=== PATIENT | female | born 2000 | race African-American/Black ===

== ENCOUNTER 2022-03-16 16:20 | Emergency (ER) | payer SELFPAY ==
[2022-03-16 16:23] VITALS: BP 134/74; PULSE 71; RESP 18; TEMP 37.1; O2SAT 99
--- NOTE | 2022-03-16 17:30 | DI.RAD_ITS ---
Exam(s) XR HIP RT COMPLETE AP PELVIS EXAM: XR HIP RT COMPLETE AP PELVIS CLINICAL HISTORY: pain, injury. TECHNIQUE: 2D digital imaging was performed. COMPARISON: No exams were available for comparison FINDINGS: Two views No evidence of pelvic nor hip fracture. No degenerative changes. No hip dysplasia. Bone density no rmal. No osseous lesions. SI joints unremarkable IMPRESSION: No significant findings. No fracture. DATA REPOSITORY: RADIATION DOSE DELIVERED:
--- NOTE | 2022-03-16 17:43 | ED.GENADUL_ITS ---
Discharge Plan Disposition Patient Disposition: HOME Condition: Stable Discharge Details Clinical Impression: Hip pain, right Primary Care Provider: Unknown,Unknown ED Provider: Fredy Gonzalez Home Meds and New Rx's Prescriptions: Continued lamotrigine 50 mg Tablet Extended Release 24hr 50 mg PO 1XD Discharge Instructions Instructions: Hip Pain (ED) Additional Instructions: X-ray is unremarkable. Gentle stretching as tolerated. [id number] Tylenol and/or Motrin as directed for discomfort. Cool and/or warm compresses every 2 hours for 20 minutes. Please watch for new or worsening symptoms and return to the ER for any concerns. I have placed you on the care management list to help expedite outpatient primary care follow-up. Once you see your primary care provider if symptoms are persisting in your hip and potential referral to orthopedics and/or physical therapy may be necessary. Stand Alone Forms: Work Release Medical Decision Making 22-year-old female reports that over the weekend she was dancing and did the splits, has had a right hip pain ever since concerned that she may have dislocated her hip. Clinically she appears well, nontoxic. Appears more soft tissue related than a bony abnormality. She has been full weightbearing and there is no signs of obvious dislocation or deformity. Patient remains concerned. Will obtain x-ray POC Right hip and pelvis x-ray unremarkable. Discussed findings with patient. Patient declines crutches. She requests a work note to return to work. I will also place her on the care management list to help expedite primary care follow- up as she does not have a primary care provider Standard discharge and return precautions were provided. Patient understands, is agreeable to this plan, and has no additional questions or concerns upon discharge. This documentation was generated using [employer] system, please disregard any oddities of phrase or misspellings. Imaging Data Radiologic Study: Attestation: I personally reviewed and interpreted this imaging study as follows: Imaging: X-Ray Radiologist's impression: PROCEDURE INFORMATION: Exam: XR Right Hip Exam date and time: 03/16/2022 6:22 PM Age: 22 years old Clinical indication: Injury or trauma; Fall; Blunt trauma (contusions or hematomas); Injury date: 03/16/22; Injury details: Right hip in jury and pain TECHNIQUE: Imaging protocol: Radiologic exam of the Right hip. Views: 2 or 3 views hip with pelvis when performed. COMPARISON: No relevant prior studies available. FINDINGS: Other findings: There is umbilical jewelry. Bones/joints: Unremarkable. No acute fracture. Soft tissues: Unremarkable. IMPRESSION: No evidence of a fracture or a dislocation. HPI General Mode of arrival: ambulatory . Date/Time Provider Initiated Documentation: 03/16/22 16:28 . Limitations to Documentation: no limitations . Information obtained by: patient . History of Present Illness 22 year old F presents to the emergency department with the chief complaint of R hip pain, described as moderate, with intensity rated at 6. Quality is described as aching, and is localized to the right and lower extremity. Patient reports no radiation. Patient started experiencing this day(s) (5) and it has been constant. Immobilization improves symptom(s), Movement worsens symptoms . Patient notes no other symptoms.. Patient did receive the following treatments prior to arrival, none Related Data Home Medications Medication Instructions Recorded Confirmed lamotrigine 50 mg tablet,extended 50 mg PO 1XD 03/16/22 03/16/22 release 24 hr Allergies Allergy/AdvReac Type Severity Reaction Status Date / Time codeine Allergy Mild Other (See Unverified 03/16/22 16:26 Comment) General Stated Complaint: Orthopedic FELIX: 4 Review of Systems Constitutional Constitutional: Denies fever(s) and Denies weakness Musculoskeletal Musculoskeletal: Reports arthralgias, Denies numbness, Reports stiffness and Denies tingling Integumentary/Breasts Skin/Breast: Denies rash Neurologic Neurologic: Denies numbness, Denies tingling and Denies weakness PFSH All Active Problems (Updated 03/16/22 @ 19:02 by HONEY Mdaden) Hip pain, right (Acute) Social History Smoking/Tobacco Use Status: Never Smoking risk assessment performed?: Yes Alcohol Intake: current Alcohol Intake frequency: 0-2 drinks per day Alcohol type: wine and hard liquor Drug use: Never Substance use type: does not use Do you feel safe at home: Yes Exam Const General: cooperative, healthy appearing, comfortable and no acute distress Orientation: alert and awake [facility] Head: normal to inspection, normocephalic and atraumatic Eyes General: appearance normal, both eyes and all related structures Conjunctivae: conjunctivae normal Neck Neck: normal visual inspection, full ROM, trachea midline and supple Resp Effort & Inspection: normal respiratory effort and able to speak in complete sentences Cardio Rate: regular rate Rhythm: regular rhythm Back/Spine/Pelvis Back: No back tenderness Skin General skin exam: no rashes or lesions noted Neuro General: patient alert, patient awake, moves all extremities and no focal motor deficits Cognition: normal cognition Speech: speech normal Gait: normal gait Motor: muscle tone normal throughout Sensory Exam: no sensory deficits noted Extrem General: normal to inspection, full ROM and capillary refill normal Other: Right hip normal inspection. Full range of motion. Without swelling, erythema, ecchymosis. There is diffuse lateral and posterior discomfort. 5 of 5 strength. Normal dorsalis pedal pulse and capillary refill. Denies there is no shortening or rotation. Patient is able to bear weight and ambulate without difficulty. Psych Appearance: grossly normal Mental Status: mental status grossly normal Course Vital Signs Vital signs: Vital Signs Temperature 37.1 C 03/16/22 16:23 Pulse 71 03/16/22 16:23 Respiratory Rate 18 03/16/22 16:23 Blood Pressure 134/74 03/16/22 16:23 Pulse Oximetry 99 03/16/22 16:23 Temperature 37.1 C 03/16/22 16:23 Pulse 71 03/16/22 16:23 Respiratory Rate 18 03/16/22 16:23 Respiratory Effort Non-Labored 03/16/22 16:28 Blood Pressure 134/74 03/16/22 16:23 Blood Pressure Position Sitting 03/16/22 16:23 Pulse Oximetry 99 03/16/22 16:23 Oxygen Delivery Method Room Air 03/16/22 16:23 Oxygen Flow Rate 0 03/16/22 16:23 Pain Level 6 03/16/22 17:30 Lab/Test Results Lab/Test Results: POC- Test(urine) Negative PAWSS Have you Been Recently Intoxicated or Drunk Within the Last 30 days?: No Have you Ever Experienced Previous Episodes of Alcohol Withdrawal?: No Have you ever Experienced Withdrawal Seizures?: No Have you ever Experienced Delirium Tremens(DT)s?: No Have you ever undergone Alcohol Rehabilitation Treatment (i.e, inpt ot outpatie nt treatment programs)?: No Have you ever Experienced Blackouts?: No Have you ever Combined Alcohol with other Downers within the last 90 days?: No Have you ever Combined Alcohol with any other Substance of Abuse during the last 90 days?: No Positive Blood Alcohol level on Presentation? [PCS.BAL]: No Evidence of Increased Autonomic Activity (i.e. HR>120, tremor, sweating, agitation, nausea)?: No Result: 0
--- NOTE | 2022-03-16 18:01 | PDOC.ERCMPRO ---
- If Service Date Differs Date of service: 03/16/22 Time of Service: 18:01 Care Management Progress Note Pt reports no significant substance use but endorses moderate anxiety symptoms (SEDA 9). She has recently moved to the area and does not currently have a Primary Care. Pt was encouraged to seek out a PCP and was provided with contact information for local mental health resources, including the 24 hour crisis line. Pt states she has accessed [facility] for a list of primary care and other services as well.
--- NOTE | 2022-03-16 18:42 | DI.VRAD_ITS ---
PROCEDURE INFORMATION: Exam: XR Right Hip Exam date and time: 03/16/2022 6:22 PM Age: 22 years old Clinical indication: Injury or trauma; Fall; Blunt trauma (contusions or hematomas); Injury date: 03/16/22; Injury details: Right hip injury and pain TECHNIQUE: Imaging protocol: Radiologic exam of the Right hip. Views: 2 or 3 views hip with pelvis when performed. COMPARISON: No relevant prior studies available. FINDINGS: Other findings: There is umbilical jewelry. Bones/joints: Unremarkable. No acute fracture. Soft tissues: Unremarkable. IMPRESSION: No evidence of a fracture or a dislocation. Dictated and Authenticated by: Chidi Damon MD. Ordering:CHANELLE Daniel MD
[2022-03-16 19:10] VITALS: PULSE 82; RESP 18; O2SAT 98
== END 2022-03-16 19:18 | disposition home or self-care (01) ==
PROVIDERS: Emergency Provider Physician Assistant
DX: G89.11 Acute pain due to trauma (principal); M25.551 Pain in right hip; X58.XXXA Exposure to other specified factors, initial encounter; Y93.41 Activity, dancing
CPT/HCPCS: 81025; 99283; 73502; 99282